=== PATIENT | male | born 1965 | race Asian ===

== ENCOUNTER 2022-09-05 17:56 | Emergency (ER) | payer OTHER ==
[2022-09-05 18:06] VITALS: BP 139/92; PULSE 67; RESP 18; TEMP 98; BMI 26.3
[2022-09-05 19:47] LABS: BASO % 0.7 % (0-2.0); EOS % 0.7 % (0-4.5); HEMATOCRIT 43.5 % (35.4-49); INR 1.11 (0.83-1.09); LYMPH % 14.7 % (8-40); MCH 28.9 pg (25.7-33.7); MCHC 34.5 g/dl (32.0-35.9); MEAN CELL VOLUME 83.9 fl (80-96); MEAN PLT VOLUME 8.6 fl (7.5-11.1); MONO % 5.7 % (3.8-10.2); NEUT % 78.2 % (42.8-82.8); PLATELET COUNT 163 10^3/uL (134-434); PROTHROMBIN TIME (PATIENT) 12.8 SEC (9.7-13.0); RBC 5.18 M/mm3 (4.00-5.60); RDW 14.3 % (11.9-15.9); WHITE BLOOD COUNT 9.6 K/mm3 (4.0-10.0)
[2022-09-05 19:50] LABS: ACTIVATED PTT 36.2 SECONDS (25.2-36.5)
[2022-09-05 20:07] LABS: ALBUMIN 3.6 g/dl (3.4-5.0); CALCIUM 8.9 mg/dL (8.5-10.1)
[2022-09-05 20:08] LABS: BLOOD UREA NITROGEN 14.2 mg/dL (7-18)
[2022-09-05 20:10] LABS: CREATININE 0.9 mg/dL (0.55-1.3)
[2022-09-05 20:12] LABS: BILIRUBIN,TOTAL 0.5 mg/dL (0.2-1); TOT PROT 7.2 g/dl (6.4-8.2)
[2022-09-05] MEDS ORDERED: SODIUM CHLORIDE 0.9% 500 ML INFUS.BAG IV ONE (20:40)
[2022-09-05] MEDS ORDERED: METOCLOPRAMIDE HCL INJECTION 10 MG/2 ML VIAL IVPB ONE (20:40)
[2022-09-05] MEDS ORDERED: MECLIZINE HCL 25 MG TABLET (FP) PO ONE ×2 (20:45→22:09)
[2022-09-05] MEDS ORDERED: METOCLOPRAMIDE HCL INJECTION 10 MG/2 ML VIAL ONE (20:52)
[2022-09-05] MEDS ORDERED: MECLIZINE HCL 25 MG TABLET (FP) ONE ×2 (20:52→22:23)
[2022-09-05 22:30] LABS: EPI CELLS 3 /uL (0-25.1); HYALINE CASTS 0 /uL (0-3.1); URINE APPEARANCE CLEAR; URINE BACTERIA 9 /uL (0-1359); URINE BILIRUBIN NEGATIVE (NEGATIVE); URINE COLOR YELLOW; URINE GLUCOSE (UA) NEGATIVE (NEGATIVE); URINE KETONE NEGATIVE (NEGATIVE); URINE LEUK ESTERASE NEGATIVE (NEGATIVE); URINE NITRITE NEGATIVE (NEGATIVE); URINE PROTEIN NEGATIVE (NEGATIVE); URINE RBC 229 /uL (0-23.9); URINE UROBILINOGEN 0.2 mg/dL (0.2-1.0); URINE WBC 4 /uL (0-25.8)
== END 2022-09-05 22:35 | disposition home or self-care (01) ==
LOC: JER 17:56
PROC: 3E033GC Introduction of Other Therapeutic Substance into Peripheral Vein, Percutaneous Approach (ICD-10-PCS; principal; 2022-09-05)
DX: R42 Dizziness and giddiness (principal)
CPT/HCPCS: 0241U-QW; 36415; 70450-TC; 80053; 81003; 84484; 85025; 85610; 85730; 87086; 93005; 93010; 99285-25

== ENCOUNTER 2023-04-29 18:56 | Emergency (ER) | payer OTHER ==
[2023-04-29 19:34] VITALS: BP 144/83; PULSE 69; RESP 17; TEMP 98.7; BMI 22.4
== END 2023-04-29 23:25 | disposition home or self-care (01) ==
LOC: JERFT 18:56
DX: S86.912A Strain of unspecified muscle(s) and tendon(s) at lower leg level, left leg, initial encounter (principal); M25.562 Pain in left knee; R20.0 Anesthesia of skin; W20.8XXA Other cause of strike by thrown, projected or falling object, initial encounter; X50.1XXA Overexertion from prolonged static or awkward postures, initial encounter
CPT/HCPCS: 73070-TC-LT-FY; 73562-TC-LT-FY; 99283-25

== ENCOUNTER 2023-08-04 15:54 | Emergency (ER) | payer OTHER ==
[2023-08-04 16:12] VITALS: BP 157/89; PULSE 57; RESP 18; TEMP 98.3; BMI 26.6
[2023-08-04] MEDS ORDERED: IBUPROFEN 400 MG TABLET (FP) PO ONE ×2 (17:53→17:57)
== END 2023-08-04 20:47 | disposition home or self-care (01) ==
LOC: JER 15:54
DX: R22.42 Localized swelling, mass and lump, left lower limb (principal); M25.562 Pain in left knee; M54.50 Low back pain, unspecified; R26.2 Difficulty in walking, not elsewhere classified; L03.116 Cellulitis of left lower limb
CPT/HCPCS: 72100-TC-FY; 93971-TC; 99284-25

== ENCOUNTER 2024-06-22 22:22 | Observation (INO) | payer OTHER ==
[2024-06-22] MEDS ORDERED: METOCLOPRAMIDE HCL 10 MG TABLET (FP) PO ONE (23:25)
[2024-06-22] MEDS ORDERED: ACETAMINOPHEN 325 MG TABLET (FP) ONE (23:25)
[2024-06-22 23:43] LABS: BASO % 0.5 % (0-2.0); EOS % 2.1 % (0-4.5); HEMATOCRIT 42.4 % (35.4-49); HEMOGLOBIN 14.2 GM/dL (11.7-16.9); LYMPH % 32.7 % (8-40); MCH 28.1 pg (25.7-33.7); MCHC 33.4 g/dl (32.0-35.9); MEAN CELL VOLUME 84.1 fl (80-96); MEAN PLT VOLUME 8.1 fl (7.5-11.1); NEUT % 55.7 % (42.8-82.8); PLATELET COUNT 184 10^3/uL (134-434); RBC 5.04 M/mm3 (4.00-5.60); RDW 15.3 % (11.9-15.9); WHITE BLOOD COUNT 7.1 K/mm3 (4.0-10.0)
[2024-06-22 23:52] LABS: BLOOD UREA NITROGEN 16.1 mg/dL (7-18); CALCIUM 8.9 mg/dL (8.5-10.1)
[2024-06-22 23:53] LABS: ALBUMIN 3.6 g/dl (3.4-5.0)
[2024-06-22 23:55] LABS: CREATININE 0.8 mg/dL (0.55-1.3)
[2024-06-22 23:57] LABS: BILIRUBIN,TOTAL 0.3 mg/dL (0.2-1); TOT PROT 6.8 g/dl (6.4-8.2)
[2024-06-23] MEDS: ACETAMINOPHEN 325 MG TABLET (FP) PO ONE (00:03)
[2024-06-23] MEDS: METOCLOPRAMIDE HCL 10 MG TABLET (FP) PO ONE (00:03)
[2024-06-23] MEDS ORDERED: MECLIZINE HCL 25 MG TABLET (FP) ONE (02:46)
[2024-06-23] MEDS: MECLIZINE HCL 25 MG TABLET (FP) PO ONE (03:18)
[2024-06-23] MEDS ORDERED: KETOROLAC TROMETHAMINE 15 MG/ML VIAL ONE (03:19)
[2024-06-23] MEDS: KETOROLAC TROMETHAMINE 15 MG/ML VIAL IVPUSH ONE (03:24)
[2024-06-23] MEDS ORDERED: DOCUSATE SODIUM 100 MG CAPSULE (FP) PO PRN (03:40)
[2024-06-23] MEDS ORDERED: ACETAMINOPHEN 1000 MG/100 ML BAG IVPB PRN (04:26)
[2024-06-23] MEDS ORDERED: ALBUTEROL SO4 0.083% IH SOL 2.5 MG/3 ML VIAL.NEB. NEB PRN (06:37)
[2024-06-23] MEDS ORDERED: VALSARTAN 80 MG TABLET ONE (09:34)
[2024-06-23] MEDS: VALSARTAN 160 MG TABLET PO SCH (09:46)
[2024-06-23] MEDS ORDERED: GABAPENTIN 100 MG CAPSULE ONE (13:19)
[2024-06-23] MEDS: GABAPENTIN 100 MG CAPSULE PO SCH (13:24)
[2024-06-23] MEDS ORDERED: TOPIRAMATE 25 MG TABLET ONE (15:33)
[2024-06-23] MEDS: TOPIRAMATE 25 MG TABLET PO SCH (15:36)
[2024-06-23 23:36] VITALS: BMI 25.2
[2024-06-24] MEDS ORDERED: ACETAMINOPHEN 1000 MG/100 ML BAG IVPB PRN ×2 (08:35→09:12)
[2024-06-24 08:53] LABS: HEMATOCRIT 40.7 % (35.4-49); HEMOGLOBIN 13.5 GM/dL (11.7-16.9); LYMPH % 26.8 % (8-40); MCH 27.8 pg (25.7-33.7); MCHC 33.1 g/dl (32.0-35.9); MEAN PLT VOLUME 8.1 fl (7.5-11.1); MONO % 8.8 % (3.8-10.2); NEUT % 61.4 % (42.8-82.8); PLATELET COUNT 170 10^3/uL (134-434); RBC 4.84 M/mm3 (4.00-5.60); RDW 14.9 % (11.9-15.9); WHITE BLOOD COUNT 7.3 K/mm3 (4.0-10.0)
[2024-06-24 09:06] LABS: POTASSIUM 3.7 mmol/L (3.5-5.1)
[2024-06-24 09:08] LABS: ALBUMIN 3.3 g/dl (3.4-5.0); CALCIUM 8.5 mg/dL (8.5-10.1)
[2024-06-24 09:09] LABS: BLOOD UREA NITROGEN 14.6 mg/dL (7-18); MAGNESIUM 2.1 mg/dL (1.8-2.4)
[2024-06-24 09:12] LABS: CREATININE 0.9 mg/dL (0.55-1.3); PHOSPHOROUS 3.1 mg/dL (2.5-4.9)
[2024-06-24 09:13] LABS: BILIRUBIN,TOTAL 0.5 mg/dL (0.2-1); CHOLESTEROL 188 mg/dL (50-200); TOT PROT 6.2 g/dl (6.4-8.2)
[2024-06-24 09:14] LABS: LDL CHOLESTEROL (ONLY SJRH) 130 mg/dL (5-100)
[2024-06-24 09:16] LABS: HDL CHOLESTEROL 47 mg/dL (40-60)
[2024-06-24] MEDS: CYANOCOBALAMIN (VITAMIN B-12) 1000 MCG/1 ML VIAL IM SCH (11:50)
[2024-06-24] MEDS: amLODIPine BESYLATE 5 MG TABLET (FP) PO SCH (16:43)
[2024-06-24] MEDS: KETOROLAC TROMETHAMINE 15 MG/ML VIAL IVPUSH PRN (20:54)
[2024-06-24] MEDS: MELATONIN 5 MG TABLETS PO PRN (21:14)
[2024-06-25 09:49] VITALS: RESP 16; TEMP 98.2
[2024-06-25 15:12] VITALS: BP 135/90; PULSE 66
== END 2024-06-25 15:22 | disposition home or self-care (01) ==
LOC: JER 22:22 → JERBED 06-23 02:41 → J4S 06-23 22:00
PROVIDERS: ADMIT Internal Medicine; ATTEND Family Medicine
PROC: 3E023GC Introduction of Other Therapeutic Substance into Muscle, Percutaneous Approach (ICD-10-PCS; principal; 2024-06-23)
PROC: 3E0333Z Introduction of Anti-inflammatory into Peripheral Vein, Percutaneous Approach (ICD-10-PCS; 2024-06-23)
PROC: 3E023GC Introduction of Other Therapeutic Substance into Muscle, Percutaneous Approach (ICD-10-PCS; 2024-06-23)
DX: R55 Syncope and collapse (principal); R42 Dizziness and giddiness; R51.9 Headache, unspecified; E53.8 Deficiency of other specified B group vitamins; M25.562 Pain in left knee; I89.0 Lymphedema, not elsewhere classified; H53.143 Visual discomfort, bilateral; F17.210 Nicotine dependence, cigarettes, uncomplicated; G89.29 Other chronic pain; I10 Essential (primary) hypertension
CPT/HCPCS: 36415; 70450-TC; 70551-TC; 72125-TC; 80048; 80053; 80061; 82607; 82962; 83735; 84100; 84443; 84484; 85025; 86780; 93005; 93010; 93306-TC; 93971-TC; 95816; 96372; 96374; 96376; 99285-25; G0378